=== PATIENT | female | born 1950 | race Caucasian/White ===

== ENCOUNTER 2018-05-28 05:37 | Inpatient (IN) ==
[2018-05-28] MEDS ORDERED: Chlorhexidine Gluconate 2% 1 Pack (2 Cloths) TOPICAL ONE (06:12)
[2018-05-28] MEDS ORDERED: Metoprolol Tartrate 25 MG Tablet PO ONE (06:12)
[2018-05-28] MEDS ORDERED: Sod Chloride 0.9% Inj 1,000 ML IV.SIG SCH (06:15)
[2018-05-28] MEDS ORDERED: Bupivacaine/Epinephrine 0.5% Inj 50 ML Vial ONE (06:36)
[2018-05-28] MEDS ORDERED: Thrombin Topical Soln 5,000 UNIT Vial TOPICAL ONE (06:36)
[2018-05-28] MEDS ORDERED: Gelatin Size 100 Topical Foam ONE (06:36)
[2018-05-28] MEDS ORDERED: Morphine Sulfate Inj 2 MG/ML Vial ONE (06:45)
[2018-05-28] MEDS ORDERED: HYDROmorphone PF Inj 2 MG/ML Vial ONE ×2 (06:49→10:49)
[2018-05-28] MEDS ORDERED: Sodium Chlor 0.9% Inj 500 ML IV.SIG SCH (07:00)
[2018-05-28] MEDS ORDERED: Vancomycin Inj 1,000 MG in Sodium Chlor 0.9% Inj 250 ML IV.SIG SCH (07:00)
[2018-05-28] MEDS ORDERED: Neostigmine Inj 5 MG/5 ML Syringe IV.PUSH ONE (08:35)
[2018-05-28] MEDS ORDERED: Lidocaine PF 1% Inj 5 ML Syringe OTHER ONE (08:35)
[2018-05-28] MEDS ORDERED: Glycopyrrolate Inj 1 MG/5 ML Syringe IV.PUSH ONE (08:35)
[2018-05-28] MEDS ORDERED: Phenylephrine/NS 1000 MCG/10ML Syringe IV.PUSH ONE (08:35)
[2018-05-28] MEDS ORDERED: methylPREDNISolone acetate 40 MG/ML VIAL ONE (09:47)
--- NOTE | 2018-05-28 10:24 | P.OP ---
- Preoperative Diagnosis (1) Lumbar spinal stenosis (2) Synovial cyst of lumbar facet joint Date of procedure: 05/28/18 Procedure: Right lumbar L4-5 hemilaminotomy with medial facetectomy and resection of synovial cyst; microsurgical technique Anesthesia: TYEA Surgeon: Ernst Doherty MD [employer] Clerk: Eliana Forte Estimated blood loss (mL): 20 Operation and Findings: Following administration of general endotracheal anesthesia, patient received vancomycin 1 g intravenously. Sequential compression devices were placed for DVT prophylaxis. He was then turned in prone position on Darion frame and the Javy table and all pressure points adequately padded. The lumbar region was then shaved and prepped with a Betadine and ChloraPrep. Sterile draping undertaken with Ioban. Midline incision overlying the L4-L5 levels was then made after infiltrating the skin with 0.5% Marcaine with epinephrine solution. The skin incision was made extending down through the fascia and then using the subperiosteal plane on the right side the muscular attachments to the spinous process and lamina were detached. Intraoperative fluoroscopy was used for level confirmation and further dissection undertaken using microtechnique with microscope magnification. The inferior portion of the right L4 and superior portion of the L5 lamina was then drilled out and the underlying ligamentum flavum also removed. There was significant facet arthropathy noted as well as severe spinal stenosis noted particularly at the lateral recess from large synovial cyst and the medial portion of the right L4-5 facet was also resected and the lateral recess decompressed with removal of the cyst was adherent to the dura and the traversing and exiting nerves. The lateral recess spinal canal and foramen were decompressed and no CSF leak encountered. Epidural venous stasis which he with the bipolar cautery along with Gelfoam and thrombin and bone wax used at the laminotomy edges for hemostasis. The area was then copiously irrigated with vancomycin solution. Depo-Medrol 40 mg was also injected in the epidural space. The retractors removed and the muscle fascia proximal using 2-0 Vicryl interrupted stitches. 3-0 Vicryl subcuticular stitches were also placed in an interrupted fashion and planned skin closure was with Mastisol and Steri-Strips. A sterile dressing was then applied and the patient then turned in the supine position and extubated and taken to recovery room in stable condition. There were no intraoperative complications and all sponge and needle count was correct at the end of the procedure. Estimated blood loss about 20 cc.
[2018-05-28] MEDS ORDERED: fentaNYL Citrate Inj 100 MCG/2 ML Ampul ONE (10:34)
[2018-05-28 12:15] VITALS: RESP 18; O2SAT 96
[2018-05-28 13:00] VITALS: BP 145/67; PULSE 91; TEMP 97.4
--- NOTE | 2018-05-31 09:06 | XR ---
EXAM DATE: 05/28/2018 12:00 AM EDT AGE/SEX: 67 years / Female INDICATIONS: L4-L5 hemilaminectomy. Level localization. CLINICAL DATA: This is the patient's initial encounter. Patient reports that signs and symptoms have been present for 1 day and indicates a pain score of Nonresponsive. MEDICAL/SURGICAL HISTORY: Non-responsive. Non-responsive. COMPARISON: No prior exams available for comparison. FINDINGS: Single spot intraoperative fluoroscopic view of the lumbar spine demonstrates localization probes pro jecting posterior to the L4 posterior elements. CONCLUSION: Localization as above. Electronically signed by: Salomón Fall MD 05/31/2018 9:04 AM EDT
== END 2018-05-28 13:05 | disposition home or self-care (01) ==
LOC: HSDI 05:37
PROVIDERS: ADMIT Neurological Surgery; ATTEND Neurological Surgery